=== PATIENT | male | born 1995 | race Caucasian/White ===

== ENCOUNTER 2023-12-03 11:15 | Emergency (ER) | payer SELFPAY ==
[2023-12-03 11:37] VITALS: BP 104/68; PULSE 65; RESP 16; TEMP 36.3; O2SAT 98; BMI 19.1
--- NOTE | 2023-12-03 11:46 | XRR_ITS ---
PROCEDURE INFORMATION: Exam: XR Left Hand Exam date and time: 12/03/2023 12:43 PM Age: 28 years old Clinical indication: Injury or trauma; Other: Cut left index finger with a wood grinder. Laceration; Hand and finger TECHNIQUE: Imaging protocol: Radiologic exam of the left hand. Views: 3 or more views. COMPARISON: No relevant prior studies available. FINDINGS: Bones/joints: Laceration along the lateral inferior aspect of the distal index finger. Soft tissues: Normal. XR/XR hand LT min 3V* [id number] IMPRESSION: No acute fracture or dislocation.
--- NOTE | 2023-12-03 12:17 | W.ED.WOUNDLC ---
HPI - Wound/Laceration General: Chief Complaint: Wound/Laceration Stated Complaint: Finger injury Time Seen by Provider: 12/03/23 12:04 Source: patient Mode of arrival: ambulatory Limitations: no limitations History of Present Illness: 28-year-old male states that he is using a salt grinder slipped and lacerated the distal tip of his index finger has a small laceration to the distal tip he states his last tetanus was roughly 9 years ago. Bleeding is controlled he is full range of motion denies any other injuries Associated symptoms: Denies chills, fever(s), nausea or vomiting Review of Systems Const: Denies: fever(s) or chills ENMT: Denies: throat pain or dental pain Card: Denies: chest pain Resp: Denies: dyspnea GI: Denies: abdominal pain, nausea, vomiting or diarrhea Musc: Reports: extremity pain; Denies: neck pain or back pain Skin/Breast: Denies: rash Neuro: Denies: headache(s) Physical Exam Const: COMMON NORMALS: no acute distress, patient oriented x3 and healthy appearing HENMT: COMMON NORMALS: normocephalic and atraumatic HEAD & SCALP: normocephalic and atraumatic Eye: COMMON NORMALS: conjunctivae normal CONJUNCTIVA: Yes conjunctivae normal Neck/C-Spine: COMMON NORMALS: full ROM and supple Chest: COMMONS NORMALS: normal inspection of the chest Resp: COMMON NORMALS: normal respiratory effort Extremity: COMMON NORMALS: full ROM NARRATIVE EXTREMITY EXAM: Superficial less than 1 cm laceration to distal tip of index finger no tendon injuries bleeding is controlled Neuro: COMMON NORMALS: patient oriented x3, moves all extremities and no focal motor deficits Psych: COMMON NORMALS: mental status grossly normal, Normal thought process present and cooperative THOUGHT PROCESS: Normal thought process present Skin: COMMON NORMALS: no rashes or lesions noted and no wounds GENERAL SKIN EXAM: no rashes or lesions noted Course Vital Signs: Vital signs: Vital Signs Temperature 97.4 F L 12/03/23 11:37 Pulse Rate 65 12/03/23 11:37 Respiratory Rate 16 12/03/23 11:37 Blood Pressure 104/68 12/03/23 11:37 Pulse Oximetry 98 12/03/23 11:37 MDM - Wound/Laceration Medical Decision Making Patient presents here with a laceration to left distal index finger superficial in nature does not require sutures did clean the wound did give him tetanus x-ray shows no fracture or foreign body did place a Band-Aid she is stable for discharge follow-up PCP return if worsening. Medical Records I reviewed the patient's medical records. All radiology interpretation(s) finalized by discharge Discharge Plan Discharge Patient Disposition: Home Clinical Impression: Finger laceration Qualifiers: Encounter type: initial encounter Finger: index finger Damage to nail status: without damage Foreign body presence: without foreign body Laterality: left Qualified Code(s): S61.211A - Laceration without foreign body of left index finger without damage to nail, initial encounter Condition: Stable Discharge Orders: Discharge ED (Routine); Ordered 12/03/23 Ordered By: Marli Prather Discharge Diet: Advance as tolerated Discharge Activity: Resume usual activity Patient Instructions: Finger Laceration (ED) Coding Level of Care Code ED Maintenance Fitter for Dipti Webster
[2023-12-03] MEDS: tetanus-dipt-pertussis 0.5 mL SDV IM (13:08)
== END 2023-12-03 13:24 | disposition home or self-care (01) ==
PROVIDERS: Emergency Provider Emergency Medicine
DX: S61.211A Laceration without foreign body of left index finger without damage to nail, initial encounter (principal); Z23 Encounter for immunization; W29.8XXA Contact with other powered hand tools and household machinery, initial encounter
CPT/HCPCS: 73130; 90715; 99283